=== PATIENT | female | born 1995 | race Caucasian/White ===

== ENCOUNTER 2017-04-09 09:53 | Emergency (ER) | payer OTHER ==
[2017-04-09 10:01] VITALS: BP 94/65; BMI 16.4
[2017-04-09] MEDS ORDERED: ZOFRAN INJ 4 MG VIAL IVP ONE (10:34)
[2017-04-09] MEDS ORDERED: NS 1000 ML 1,000 ML IV ONE (10:34)
--- NOTE | 2017-04-09 10:34 | DR.GENAD ---
HPI - PCP Primary Care Physician: Chago - Complaint/Symptoms Chief Complaint Doctors Comments: Patient admits to vomiting on last night x four. Denies fever, or diarrhea. Chief Complaint:: "I have a friend who was recently diagnosed with strep. I was hanging out with her last week and around Sunday I started having a sore throat. I have also been vomiting and have been feeling light headed." - Source History Provided: Patient - Mode of Arrival Mode of Arrival: Ambulatory - Timing Onset of Chief Complaint: 04/06/17 PMH - PMH Past Medical History: Yes Past Medical History: Diabetes Past Surgical History: Yes Surgical History: Tonsillectomy, Other Past Surgical History Comment: Ears, and stomach (gastric bypass) - Family History History of Family Medical Conditions: Yes Family Medical History: Diabetes Mellitus, Cancer, Hypertension - Social History Does patient currently use any type of tobacco product: Yes Have you used tobacco products in the last 12 months: Yes Type of Tobacco Use: Cigarettes Does any household member use tobacco: Yes Alcohol Use: Rarely Do you use any recreational Drugs:: No Lives With: Family Lives Where: Home - infectious screening In the last 2 months have you had wt loss of >10#?: NO Have you had fever, night sweats or hemotysis?: No Have you traveled outside the country in the last 6 months?: No Isolation: Standard ROS - Review of Systems Eyes: No Symptoms Reported ENTM: No Symptoms Reported Respiratoy: No Symptoms Reported Cardiovascular: No Symptoms Reported Gastrointestinal/Abdominal: No Symptoms Reported Genitourinary: No Symptoms Reported Neurological: No Symptoms Reported Musculoskeletal: No Symptoms Reported Integumentary: No Symptoms Reported Hematologic/Lymphatic: No Symptoms Reported Endocrine: No Symptoms Reported Psychiatric: No Symptoms Reported All Other Systems: Reviewed and Negative PE - Vital Signs Vitals: Temperature 97.7 F Pulse Rate 72 Respiratory Rate 18 Blood Pressure 94/65 O2 Sat by Pulse Oximetry 100 - General Limitations: No Limitations General Appearance: Alert, In No Apparent Distress - Head Head Exam: Normal Inspection, Atraumatic - Eyes Eye exam: Normal Appearance, PERRL, EOMI - ENT ENT Exam: Normal Exam TM/Canal Exam: Bilateral Normal Nose Exam: Normal Nose Exam, Sinus Tenderness Mouth Exam: Normal Inspection Throat Exam: Normal Inspection - Neck Neck Exam: Normal Inspection - Chest Chest Inspection: Normal Inspection - Respiratory Respiratory Exam: Normal Lung Sounds Bilat Respiratory Exam: Bilateral Clear to Auscultation - Cardiovascular Cardiovascular Exam: Regular Rate, Normal Rhythm - Abdominal Exam Abdominal Exam: Normal Inspection Abdominal Tenderness: negative: RUQ, RLQ, LUQ, LLQ, Epigastrium, Suprapubic, Diffuse, Mild, Moderate, Severe, Other - Extremities Extremities Exam: Normal Inspection - Back Back Exam: Normal Inspection, Full ROM - Neurologic Neurological Exam: Alert, Oriented X3, CN II-XII Intact - Psychiatric Psychiatric Exam: Normal Affect, Normal Mood - Skin Skin Exam: Warm, Dry, Intact Course - Reevaluation 1st: Improved ROR - Labs Reviewed Laboratory Results Reviewed?: Yes (strep negative) Laboratory: Streptococcus Screen Negative (NEGATIVE) 04/09/17 10:18 - Diagnosis Discharge Problem: Vomiting Qualifiers: Vomiting type: unspecified Vomiting Intractability: non-intractable Nausea presence: with nausea Qualified Code(s): R11.2 - Nausea with vomiting, unspecified Pharyngitis Qualifiers: Pharyngitis/tonsillitis etiology: unspecified etiology Qualified Code(s): J02.9 - Acute pharyngitis, unspecified - Discharge Plan Condition: Stable - Follow ups/Referrals Follow ups/Referrals: NFD,None [Primary Care Provider] - 3 days - Instructions
[2017-04-09] MEDS ORDERED: ZOFRAN INJ 4 MG VIAL ONE (10:35)
[2017-04-09] MEDS ORDERED: NS 1000 ML 1,000 ML ONE (10:40)
[2017-04-09] MEDS ORDERED: TORADOL 30 MG VIAL IVP ONE (10:47)
[2017-04-09] MEDS ORDERED: TORADOL 30 MG VIAL ONE (10:48)
== END 2017-04-09 11:25 | disposition home or self-care (01) ==
LOC: ER 10:16
DX: R11.2 Nausea with vomiting, unspecified (principal); J02.9 Acute pharyngitis, unspecified
CPT/HCPCS: 87070; 87880; 96365; 96374; 96375; 99283; A4222; J1885; J2405